=== PATIENT | male | born 1955 | race Caucasian/White ===

== ENCOUNTER 2021-02-21 09:07 | Outpatient (CLI) | payer MEDICARE, SELFPAY ==
--- NOTE | 2021-02-21 09:16 | XR_ITS ---
WS: [id number] Exam: XR shoulder LT min 2V* [id number] Date/Time of Exam: 02/21/2021 9:21 AM Reason For Exam: L SHOULDER PAIN/IMPINGEMENT SYNDROME L SHOULDER No fracture or dislocation. Soft tissue calcification along the greater tuberosity humerus suggesting calcific tendinitis or bursitis. XR/XR shoulder LT min 2V* [id number] IMPRESSION: 1. Findings suggest calcific tendinitis or bursitis. 2. No fracture or dislocation.
== END 2021-02-21 09:08 | disposition home or self-care (01) ==
PROVIDERS: PCP Nurse Practitioner Family; Visit Provider Nurse Practitioner Family
DX: M75.42 Impingement syndrome of left shoulder (principal); M25.512 Pain in left shoulder
CPT/HCPCS: 73030

== ENCOUNTER 2021-03-07 22:52 | Emergency (ER) | payer MEDICARE, SELFPAY ==
[2021-03-07 23:12] VITALS: BP 117/76; PULSE 81; RESP 18; TEMP 36.9; O2SAT 95; BMI 25.8
--- NOTE | 2021-03-07 23:13 | CTR_ITS ---
PROCEDURE INFORMATION: Exam: CT Abdomen And Pelvis With Contrast Exam date and time: 03/07/2021 11:13 PM Age: 65 years old Clinical indication: Abdominal pain; Generalized; Additional info: Abd pain, diarrhea TECHNIQUE: Imaging protocol: Computed tomography of the abdomen and pelvis with contrast. Radiation optimization: All CT scans at this facility use at least one of these dose optimization techniques: automated exposure control; mA and/or kV adjustment per patient size (includes targeted exams where dose is matched to clinical indication); or iterative reconstruction. Contrast material: OMNI 300; Contrast volume: 95 ml; Contrast route: INTRAVENOUS (IV); COMPARISON: No relevant prior studies available. RADIATION DOSE METRICS: Total DLP (mGy-cm): 1564.3 FINDINGS: Liver: Normal. No mass. Gallbladder and bile ducts: Cholelithiasis. Negative for inflammatory gallbladder wall thickening. Negative for biliary system dilation. Pancreas: Normal. No ductal dilation. Spleen: Normal. No splenomegaly. Adrenal glands: Normal right adrenal gland. Small enhancing nodule of the left adrenal gland measures 12 mm x 12 mm. Kidneys and ureters: Small bilateral nonobstructing kidney stones. Negative for hydroureteronephrosis. No perinephric inflammation. Stomach and bowel: Unremarkable. No obstruction. No mucosal thickening. Appendix: Normal appendix. Intraperitoneal space: Unremarkable. No free air. No significant fluid collection. Vasculature: Unremarkable. No abdominal aortic aneurysm. Lymph nodes: Unremarkable. No enlarged lymph nodes. Urinary bladder: Unremarkable as visualized. Reproductive: Mild severity prostatomegaly. Bones/joints: Unremarkable. No acute fracture. Soft tissues: Unremarkable. CT/CT abdomen pelvis w con* [id number] IMPRESSION: 1. Negative for acute abdominopelvic pathology. 2. Incidental small left adrenal gland mass. 3. Consider 12 month follow-up adrenal CT. (Reference: Mario) REFERENCES: Mario MARTINEZ, et al. Management of Incidental Adrenal Masses: A White Paper of the ACR Incidental Findings Committee. J Am Malena Radiol. 2017;14(8):7865-3429. Radiation Dose CTDIVOL = (mGy): DLP = 1564.3 (mGy-cm)
--- NOTE | 2021-03-07 23:19 | ED_ITS ---
HPI - Nausea/Vomiting/Diarrhea General: Chief complaint: Nausea/Vomiting/Diarrhea Stated complaint: Diarrhea, abd pain Time Seen by Provider: 03/07/21 23:19 History of Present Illness: HPI Narrative: 65-year-old male patient comes in today with complaints of abdominal pain and diarrhea. Patient has a history of diabetes which he controls with diet and medication. Patient states that for 1 week now he started having diarrhea. The diarrhea did not start until after Thanksgiving meal. Patient appears well. Patient appears no acute distress. Patient reports frequent significant diarrhea with -- stools today. Patient denies any vomiting. Patient denies any abdominal surgeries. Review of Systems General: Reports: 10 or more systems reviewed and unremarkable except in HPI and below GI: Reports: abdominal pain and diarrhea Physical Exam Const: COMMON NORMALS: no acute distress and patient oriented x3 GENERAL APPEARANCE: cooperative HENMT: COMMON NORMALS: normocephalic and Normal external nose present HEAD & SCALP: normal to inspection and normocephalic NOSE: Normal external nose present MOUTH: Normal oral and palatal mucosa present Eye: GENERAL EYE: appearance normal, both eyes and all related structures Neck/C-Spine: COMMON NORMALS: full ROM Chest: COMMONS NORMALS: normal inspection of the chest Resp: COMMON NORMALS: normal respiratory effort EFFORT & INSPECTION: Yes able to speak in complete sentences Cardio: COMMON NORMALS: regular rate and regular rhythm RATE: regular rate RHYTHM: regular rhythm GI: COMMON NORMALS: Soft to palpation and non-tender AUSCULTATION: Yes Hyperactive bowel sounds present PALPATION: Yes Soft to palpation, Yes Tenderness to palpation present (GI) (Periumbilical), No Guarding due to palpation present (GI), No Rigid due to palpation and No Rebound tenderness present : COMMON NORMALS: Yes no CVA tenderness BLADDER/KIDNEY EXAM: Yes no CVA tenderness Back/Pelvis: COMMON NORMALS: no CVA tenderness and thoracic and lumbar spine normal to inspection Extremity: COMMON NORMALS: normal to inspection Neuro: COMMON NORMALS: patient oriented x3 and moves all extremities Psych: COMMON NORMALS: mental status grossly normal and cooperative Skin: COMMON NORMALS: no rashes or lesions noted GENERAL SKIN EXAM: no rashes or lesions noted Course Vital Signs: Vital signs: Vital Signs Temperature 98.5 F 03/07/21 23:12 Pulse Rate 88 03/08/21 00:51 Respiratory Rate 18 03/08/21 00:51 Blood Pressure 112/59 03/08/21 00:51 Pulse Oximetry 95 03/08/21 00:51 MDM - Nausea/Vomiting/Diarrhea MDM Narrative: Medical decision making narrative: 65-year-old male patient comes in with persistent diarrhea since . Patient reports some lower abdominal pain. Patient denies any fever or chills. Patient appears mildly unwell. Oral mucosa is mildly dry. Patient is diabetic. Differential diagnosis includes diverticulitis, gastroenteritis, colitis. CBC showed a white count of 15,000, glucose was 190, sodium was 132. Urinalysis was unremarkable. Stools were collected and sent for evaluation. CT of the abdomen and pelvis noted no significant abnormality. Patient did have an enlarged prostate and an enlarged adrenal gland that was recommended to have repeat imaging in 6 months. I notified the family of this. Also recommend the patient increase bulk in his diet with extra fiber such with Metamucil. Patient will be covered with Cipro and Flagyl to cover for infectious gastroenteritis. Patient reported understanding of care plan. Patient also reports that he has been having some difficulty sleeping and asked if we could give him something to help him rest. I recommended patient talk with his primary care regarding his issues. Patient was written for 7 tablets of Ambien 5 mg. Lab Data: Labs: Lab Results 03/07/21 03/07/21 03/08/21 23:27 23:27 00:10 WBC 15.0 10^3/uL H 10 ^3/uL (4.0-10.0) RBC 5.94 10^6/uL H 10 ^6/uL (4.1-5.3) Hgb 17.6 g/dL H g/dL (11.7-16.6) Hct 49.6 % % (42.0-52.0) MCV 83.5 fl fl (80-94) MCH 29.6 pg pg (28.0-34.0) MCHC 35.5 g/dL g/dL (30.0-36.0) RDW 12.9 % % (12.1-15.1) Plt Count 268 10^3/cmm 10^3 /cmm (130-400) MPV 11.1 fL H fL (7.4-10.4) Neut % (Auto) 56.7 % % Lymph % (Auto) 15.5 % % Loving % (Auto) 6.1 % % Eos % (Auto) 19.6 % % Baso % (Auto) 0.3 % % Neut # (Auto) 8.50 10^3/uL H 10 ^3/uL (1.8-7.7) Lymph # (Auto) 2.3 10^3/uL 10^3/ uL (0.8-4.8) Loving # (Auto) 0.9 10^3/uL 10^3/ uL (0.2-0.9) Eos # (Auto) 2.9 10^3/uL H 10^ 3/uL (0.0-0.8) Baso # (Auto) 0.1 10^3/uL 10^3/ uL (0.0-0.1) Nucleated RBC % (a uto) 0 % % Nucleated RBCs # 0.0 /100WBC /100W BC Sodium 132 mmol/L L mmol /L (136-145) Potassium 3.7 mmol/L mmol/L (3.5-5.1) Chloride 99 mmol/L mmol/L (98-107) Carbon Dioxide 20 mmol/L L mmol/ L (22-29) Anion Gap 16.7 (5-19) BUN 21 mg/dL mg/dL (8-23) Creatinine 0.9 mg/dL mg/dL (0.7-1.2) GFR Calculation 84.7 mL/min L mL/ min (90-130) Glucose 190 mg/dL H mg/dL (65-115) Calculated Osmolal ity 282 mOsm/kg L mOs m/kg (285-295) Calcium 7.0 mg/dL L mg/dL (8.5-10.5) Total Bilirubin 0.3 mg/dL mg/dL (0.15-1.2) AST 10 U/L U/L (0-40) ALT 11 U/L U/L (0-41) Alkaline Phosphata se 105 IU/L IU/L (40-130) Total Protein 7.0 g/dL g/dL (6.6-8.7) Albumin 4.1 g/dL g/dL (3.5-5.2) Globulin 2.9 g/dL g/dL (1.3-4.6) Lipase 39 U/L U/L (13-60) Urine Color Yellow (Yellow) Urine Appearance Clear (CLEAR) Urine pH 5 (5-7) Ur Specific Gravit y 1.015 (1.005-1.030) Urine Protein Neg (Negative) Urine Glucose (UA) 4+ H (Normal) Urine Ketones Negative (Negative) Urine Blood Neg (Negative) Urine Nitrate Negative (Negative) Urine Bilirubin Neg (Negative) Urine Urobilinogen Neg mg/dL mg/dL (Negative) Ur Leukocyte Dianne ase Negative (Negative) Discharge Plan Discharge Patient Disposition: Home Clinical Impression: Gastroenteritis Diarrhea Qualifiers: Diarrhea type: presumed infectious Qualified Code(s): R19.7 - Diarrhea, unspecified Condition: Stable Prescriptions: New Cipro 500 mg tablet 500 mg PO BID Qty: 10 RF: 0 metronidazole 500 mg tablet 500 mg PO BID Qty: 10 RF: 0 loperamide 2 mg capsule 2 mg PO Q4H PRN (Reason: loose stool) Qty: 20 RF: 0 zolpidem 5 mg tablet 5 mg PO .HS PRN (Reason: insomnia) Qty: 7 RF: 0 Discharge Orders: Discharge ED (Routine); Ordered 03/08/21 Ordered By: Sandip Dumont Referrals: Christine Philip NP [Primary Care Provider] - Discharge Diet: Usual diet Discharge Activity: Increase activity as tolerated Patient Instructions: Diarrhea - Adult, Opioid Safety Activity Restrictions/Additional Instructions: Drink plenty of fluids. Take antibiotic as directed. Use loperamide as needed for diarrhea. Follow-up with primary care in 3 days for recheck. Return to the ER for high fever, blood in vomit or stools, or new concerns. Coding Level of Care Code ED Transport [employer]cre[employer] for Harry Fwd Exam Comprehensive
[2021-03-07 23:43] LABS: Basophils # 0.1 10^3/uL (0.0-0.1); Basophils % 0.3 %; Eosinophils # 2.9 10^3/uL (0.0-0.8); Eosinophils % 19.6 %; Hematocrit 49.6 % (42.0-52.0); Hemoglobin 17.6 g/dL (11.7-16.6); Lymphocytes # 2.3 10^3/uL (0.8-4.8); Lymphocytes % 15.5 %; Mean Corpuscular HGB Conc 35.5 g/dL (30.0-36.0); Mean Corpuscular Hemoglobin 29.6 pg (28.0-34.0); Mean Corpuscular Volume 83.5 fl (80-94); Mean Platelet Volume 11.1 fL (7.4-10.4); Monocytes # 0.9 10^3/uL (0.2-0.9); Monocytes % 6.1 %; Neutrophils % 56.7 %; Nucleated Red Blood Cells % 0 %; Platelet Count 268 10^3/cmm (130-400); Red Blood Count 5.94 10^6/uL (4.1-5.3); Red Cell Distribution Width 12.9 % (12.1-15.1)
[2021-03-08 00:07] LABS: Alanine Aminotransferase 11 U/L (0-41); Albumin Level 4.1 g/dL (3.5-5.2); Alkaline Phosphatase 105 IU/L (40-130); Anion Gap 16.7 (5-19); Aspartate Amino Transferase 10 U/L (0-40); Blood Urea Nitrogen 21 mg/dL (8-23); Carbon Dioxide 20 mmol/L (22-29); Chloride 99 mmol/L (98-107); Globulin 2.9 g/dL (1.3-4.6); Glomerular Filtration Rate 84.7 mL/min (90-130); Glucose 190 mg/dL (65-115); Lipase 39 U/L (13-60); Osmolality Calculated 282 mOsm/kg (285-295); Potassium 3.7 mmol/L (3.5-5.1); Sodium 132 mmol/L (136-145); Total Bilirubin 0.3 mg/dL (0.15-1.2)
[2021-03-08 00:24] LABS: Add Urine Microscopic? NO; Charge for UA Resulting for Rev
[2021-03-08] MEDS: iohexol 300 mg/mL 100 mL Btl IV (00:31)
[2021-03-08 00:34] LABS: Glucose Urine UA 4+ (Normal); Protein Urine Neg (Negative); Specific Gravity, Urine 1.015 (1.005-1.030); Urine Appearance Clear (CLEAR); Urine Color Yellow (Yellow); pH Urine 5 (5-7)
[2021-03-08 00:35] LABS: Bilirubin Urine Neg (Negative); Blood Urine Neg (Negative); Ketones Urine Negative (Negative); Leukocyte Esterase Urine Negative (Negative); Nitrate Urine Negative (Negative); Urobilinogen Urine Neg (Negative)
[2021-03-08 00:51] VITALS: BP 112/59; PULSE 88; RESP 18; O2SAT 95
[2021-03-08] MEDS: sodium chloride 0.9% 1,000 ML 999 ML IV ×2 (01:33→01:39)
[2021-03-08] MEDS: metroNIDAZOLE 500 MG Tablet PO (01:39)
[2021-03-08] MEDS: diphenoxylate/atropine Tablet 2 TAB PO (01:39)
[2021-03-08] MEDS: ciprofloxacin 500 mg Tablet PO (01:39)
[2021-03-08] MEDS: zolpidem 5 mg Tablet PO (02:13)
[2021-03-08 02:15] VITALS: BP 132/79; PULSE 77; RESP 18; O2SAT 100
== END 2021-03-08 02:17 | disposition home or self-care (01) ==
PROVIDERS: Emergency Provider Nurse Practitioner Family; PCP Nurse Practitioner Family
DX: K52.9 Noninfective gastroenteritis and colitis, unspecified (principal)
CPT/HCPCS: 74177; 80053; 81003; 82274; 83630; 83690; 85025; 87506; 96360; 96361; 99283; J7030; Q9967

== ENCOUNTER → 2022-09-05 08:01 | Outpatient (BNVA) | payer MEDICARE, MEDICAID, SELFPAY | PROVIDERS: PCP Nurse Practitioner Family; Referring Provider Nurse Practitioner Family; Visit Provider Nurse Practitioner Family | DX: C44.41 Basal cell carcinoma of skin of scalp and neck (principal); L28.0 Lichen simplex chronicus; L81.4 Other melanin hyperpigmentation; D22.5 Melanocytic nevi of trunk; Z71.89 Other specified counseling; L85.3 Xerosis cutis; L57.8 Other skin changes due to chronic exposure to nonionizing radiation | CPT/HCPCS: 11102; 17000; 17003; 99204 ==

== ENCOUNTER → 2022-09-10 14:14 | Outpatient (BNVA) | payer MEDICARE, MEDICAID, SELFPAY | PROVIDERS: PCP Family Medicine; Referring Provider Nurse Practitioner Family; Visit Provider Internal Medicine | DX: E11.9 Type 2 diabetes mellitus without complications (principal); E78.2 Mixed hyperlipidemia; Z79.84 Long term (current) use of oral hypoglycemic drugs; Z79.4 Long term (current) use of insulin | CPT/HCPCS: 99204 ==

== ENCOUNTER → 2022-09-30 09:54 | Outpatient (BNVA) | payer MEDICARE, MEDICAID, SELFPAY | PROVIDERS: PCP Family Medicine; Visit Provider Dermatology | DX: C44.41 Basal cell carcinoma of skin of scalp and neck (principal) | CPT/HCPCS: 14041; 17311; 17312 ==

== ENCOUNTER → 2022-12-12 07:49 | Outpatient (BNVA) | payer MEDICARE, MEDICAID, SELFPAY | PROVIDERS: PCP Family Medicine; Visit Provider Internal Medicine | DX: E11.9 Type 2 diabetes mellitus without complications (principal); E78.2 Mixed hyperlipidemia; Z79.4 Long term (current) use of insulin | CPT/HCPCS: 99214 ==

== ENCOUNTER → 2023-03-17 08:01 | Outpatient (BNVA) | payer MEDICARE, MEDICAID, SELFPAY | PROVIDERS: PCP Family Medicine; Visit Provider Internal Medicine | DX: E11.9 Type 2 diabetes mellitus without complications (principal); E78.2 Mixed hyperlipidemia; Z79.4 Long term (current) use of insulin | CPT/HCPCS: 99214 ==

== ENCOUNTER → 2023-06-27 09:49 | Outpatient (BNVA) | payer MEDICARE, MEDICAID, SELFPAY | PROVIDERS: PCP Family Medicine; Visit Provider Internal Medicine | DX: E11.9 Type 2 diabetes mellitus without complications (principal); E78.2 Mixed hyperlipidemia | CPT/HCPCS: 99214 ==

== ENCOUNTER → 2023-08-08 11:55 | Outpatient (BNVA) | payer MEDICARE, MEDICAID, SELFPAY | PROVIDERS: PCP Family Medicine; Visit Provider Internal Medicine | DX: E11.9 Type 2 diabetes mellitus without complications (principal); E78.2 Mixed hyperlipidemia; Z79.4 Long term (current) use of insulin | CPT/HCPCS: 99214 ==

== ENCOUNTER → 2023-11-11 08:14 | Outpatient (BNVA) | payer MEDICARE, MEDICAID, SELFPAY | PROVIDERS: PCP Family Medicine; Visit Provider Internal Medicine | DX: E11.9 Type 2 diabetes mellitus without complications (principal); E78.2 Mixed hyperlipidemia; Z79.4 Long term (current) use of insulin | CPT/HCPCS: 99214 ==

== ENCOUNTER 2024-02-01 09:47 | Emergency (ER) | payer MEDICARE, MEDICAID, SELFPAY ==
[2024-02-01 09:52] VITALS: BP 179/86; PULSE 62; RESP 18; TEMP 36.7; O2SAT 97; BMI 26.6
--- NOTE | 2024-02-01 09:59 | XRR_ITS ---
PROCEDURE INFORMATION: Exam: XR Left Hand Exam date and time: 02/01/2024 10:07 AM Age: 68 years old Clinical indication: Pain; Hand; Left; Additional info: Injury TECHNIQUE: Imaging protocol: Radiologic exam of the left hand. Views: 3 or more views. COMPARISON: No relevant prior studies available. FINDINGS: Bones/joints: No fracture or dislocation is appreciated. Bony mineralization is normal. There is mild osteoarthritis involving the 1st carpometacarpal joint and IP joints. Soft tissues: There is soft tissue swelling with soft tissue injury involving the 2nd digit. XR/XR hand LT min 3V* [id number] IMPRESSION: 1. Soft tissue swelling with soft tissue injury involving the 2nd digit.
--- NOTE | 2024-02-01 10:22 | ED_ITS ---
HPI - Wound/Laceration General: Chief Complaint: Wound/Laceration Stated Complaint: Left finger laceration Time Seen by Provider: 02/01/24 09:52 Source: patient Mode of arrival: ambulatory Limitations: no limitations History of Present Illness: 68-year-old male who states that he is w orking on bulldozer and had a limb come back and hit him in the left hand he does have a laceration over the radial a spect of his left index finger he rates his pain a 6 at 10 he has full range of motion denies any other injuries. Associated symptoms: Denies chills, fever(s), nausea or vomiting Related Data Home Medications Medication Instructions Recorded Confirmed gabapentin 100 mg capsule 100 mg PO DAILY 09/10/22 11/11/23 omeprazole 40 mg capsule,delayed 40 mg PO BID 09/10/22 11/11/23 release ropinirole 2 mg tablet 2 mg PO DAILY 09/10/22 11/11/23 sertraline 100 mg tablet 100 mg PO DAILY 09/10/22 11/11/23 tamsulosin 0.4 mg capsule 0.4 mg PO DAILY 09/10/22 11/11/23 trazodone 150 mg tablet 150 mg PO DAILY 09/10/22 11/11/23 Previous Rx's Medication Instructions Recorded ciprofloxacin HCl 500 mg tablet 500 mg PO BID #10 tabs 03/08/21 (Cipro) loperamide 2 mg capsule 2 mg PO Q4H PRN loose stool #20 03/08/21 caps metronidazole 500 mg tablet 500 mg PO BID #10 tabs 03/08/21 zolpidem 5 mg tablet 5 mg PO .HS PRN insomnia #7 tabs 03/08/21 atorvastatin 40 mg tablet 40 mg PO DAILY #90 tabs 03/17/23 blood-glucose meter,continuous #1 ea 03/17/23 (Dexcom G7 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 Cat Operator) pen needle, diabetic 31 gauge x #100 ea 07/01/23/ (Comfort EZ Pen [place]) blood-glucose sensor (Dexcom G7 #9 ea 09/08/23 Sensor device) amoxicillin 500 mg-potassium 1 tab PO TID #21 tabs 11/11/23 clavulanate 125 mg tablet insulin regular hum U-500 conc 500 60 unit (0.12 mL) SUBCUT TID #32.4 01/15/24 unit/mL(3 mL) subcut pen (Humulin mL R U-500 (Conc) Insulin Kwikpen) cephalexin 500 mg capsule 500 mg PO TID 7 days #21 caps 02/01/24 Allergies Allergy/AdvReac Type Severity Reaction Status Date / Time No Known Allergies Allergy Verified 11/11/23 08:20 Review of Systems Const: Denies: fever(s), chills, body aches or change in appetite ENMT: Denies: throat pain or dental pain Card: Denies: chest pain Resp: Denies: dyspnea GI: Denies: abdominal pain, nausea, vomiting or diarrhea Musc: Reports: extremity pain; Denies: neck pain or back pain Skin/Breast: Denies: rash Neuro: Denies: headache(s) PFSH ED PFSH: Medical History Diabetes mellitus Family History Other Cancer Diabetes Hypertension Social History Smoking and tobacco/nicotine status: never used tobacco/nicotine Physical Exam Const: COMMON NORMALS: no acute distress, patient oriented x3 and healthy appearing HENMT: COMMON NORMALS: normocephalic and atraumatic HEAD & SCALP: normoce phalic and atraumatic Neck/C-Spine: COMMON NORMALS: full ROM and supple Chest: COMMONS NORMALS: normal inspection of the chest Resp: COMMON NORMALS: normal respiratory effort Cardio: COMMON NORMALS: regular rate, regular rhythm and No murmurs present (Cardio) RATE: regular rate RHYTHM: regular rhythm Extremity: COMMON NORMALS: full ROM NARRATIVE EXTREMITY EXAM: 3 cm laceration to the radial aspect of right index finger no tendon involvement bleeding controlled he has full extension and flexion Neuro: COMMON NORMALS: patient oriented x3, moves all extremities and no focal motor deficits Psych: COMMON NORMALS: mental status grossly normal, Normal thought process present and cooperative THOUGHT PROCESS: Normal thought process present Skin: COMMON NORMALS: no rashes or lesions noted and no wounds GENERAL SKIN EXAM: no rashes or lesions noted Procedures Laceration Laceration 1: Site: hand Side (If applicable): left Size (cm): 4 Description: linear Depth: simple, single layer Local Anesthetic: bupivacaine 0.5% Amount of anesthesia used (mL): 10 Pre-repair: wound explored, irrigated extensively and deep structures intact Skin layer closed with: nylon Size (cm): 5-0 Number of sutures: 6 Technique: simple, interrupted Course Vital Signs: Vital signs: Vital Signs Temperature 98.1 F 02/01/24 09:52 Pulse Rate 62 02/01/24 09:52 Respiratory Rate 18 02/01/24 09:52 Blood Pressure 179/86 02/01/24 09:52 Pulse Oximetry 97 02/01/24 09:52 MDM - Wound/Laceration Medical Decision Making Patient presents here with laceration to index finger no tendon involvement. X- ray here shows no fracture did repair the laceration we will place him on antibiotics he is to have sutures out in 10 days. He understands agrees plan Medical Records I reviewed the patient's medical records. Lab Data Radiology Impressions Hand X-Ray 02/01/24 09:59 IMPRESSION: 1. Soft tissue swelling with soft tissue injury involving the 2nd digit. All radiology interpretation(s) finalized by discharge Discharge Plan Discharge Patient Disposition: Home Clinical Impression: Finger laceration Condition: Stable Prescriptions: New cephalexin 500 mg capsule 500 mg PO TID 7 Days Qty: 21 0RF No Action amoxicillin-pot clavulanate 500-125 mg tablet 1 tab PO TID Qty: 21 0RF sertraline 100 mg tablet 100 mg PO DAILY gabapentin 100 mg capsule 100 mg PO DAILY trazodone 150 mg tablet 150 mg PO DAILY tamsulosin 0.4 mg capsule 0.4 mg PO DAILY ropinirole 2 mg tablet 2 mg PO DAILY omeprazole 40 mg capsule,delayed release(DR/EC) 40 mg PO BID atorvastatin 40 mg tablet 40 mg PO DAILY Qty: 90 0RF (DME) Dexcom G7 Boom Cat Operator Misc See Rx Instructions .Route Qty: 1 0RF Rx Instructions: As directed (DME) pen needle, diabetic [Comfort EZ Pen [place]] 31 gauge x 5/16 needle See Rx Instructions .Route Qty: 100 3RF Rx Instructions: As directed (DME) Dexcom G7 Sensor Device See Rx Instructions .ROUTE .COMPLEX Qty: 9 3RF Dose Instruction: CHANGE EVERY 10 DAYS Rx Instructions: CHANGE EVERY 10 DAYS Humulin R U-500 (Conc) Kwikpen 500 unit/mL (3 mL) insulin pen 60 unit SUBCUT TID Qty: 32.4 1RF Cipro 500 mg tablet 500 mg PO BID Qty: 10 0RF metronidazole 500 mg tablet 500 mg PO BID Qty: 10 0RF loperamide 2 mg capsule 2 mg PO Q4H PRN (Reason: loose stool) Qty: 20 0RF Rx Instructions: administer after each loose stool until symptoms controlled; do not exceed 16 mg per 24 hrs zolpidem 5 mg tablet 5 mg PO .HS PRN (Reason: insomnia) Qty: 7 0RF Discharge Orders: Discharge ED (Routine); Ordered 02/01/24 Ordered By: Fatemeh Yee Referrals: Kathi Moody MD [Primary Care Provider] - 7-10 days Discharge Diet: Advance as tolerated Discharge Activity: Resume usual activity Patient Instructions: Care For Your Stitches (ED), Laceration (ED) Activity Restrictions/Additional Instructions: suture removal in 10 days Coding Level of Care Code 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
[2024-02-01] MEDS: BUPivacaine-epi 0.5% 10 ML INJ 30 ML INJECTION (10:47)
[2024-02-01 11:21] VITALS: BP 147/82; PULSE 63; O2SAT 98
== END 2024-02-01 11:22 | disposition home or self-care (01) ==
PROVIDERS: Emergency Provider Emergency Medicine; PCP Family Medicine
DX: S61.211A Laceration without foreign body of left index finger without damage to nail, initial encounter (principal); W22.8XXA Striking against or struck by other objects, initial encounter
CPT/HCPCS: 12002; 73130; 99283

== ENCOUNTER → 2024-03-12 08:54 | Outpatient (BNVA) | payer MEDICARE, MEDICAID, SELFPAY | PROVIDERS: PCP Family Medicine; Visit Provider Internal Medicine | DX: E11.9 Type 2 diabetes mellitus without complications (principal); E78.2 Mixed hyperlipidemia; Z79.4 Long term (current) use of insulin | CPT/HCPCS: 99214 ==

== ENCOUNTER → 2024-06-17 08:05 | Outpatient (BNVA) | payer MEDICARE, MEDICAID, SELFPAY | PROVIDERS: PCP Family Medicine; Visit Provider Internal Medicine | DX: E11.9 Type 2 diabetes mellitus without complications (principal); E78.2 Mixed hyperlipidemia | CPT/HCPCS: 99214 ==

== ENCOUNTER 2024-08-20 19:58 | Emergency (ER) | payer OTHER, MEDICAID, SELFPAY ==
[2024-08-20 20:10] VITALS: BP 156/81; PULSE 82; RESP 20; TEMP 36.3; O2SAT 95
--- NOTE | 2024-08-20 20:18 | XRR_ITS ---
PROCEDURE INFORMATION: Exam: XR Chest Exam date and time: 08/20/2024 9:02 PM Age: 68 years old Clinical indication: Cough and shortness of breath; Cough with SOB TECHNIQUE: Imaging protocol: Radiologic exam of the chest. Views: 1 view. COMPARISON: CT abdomen pelvis w con* [id number] 03/08/2021 12:25 AM FINDINGS: Lungs: Unremarkable. No consolidation. Pleural spaces: Unremarkable. No pleural effusion. No pneumothorax. Heart/Mediastinum: Unremarkable. No cardiomegaly. Bones/joints: Unremarkable. XR/XR chest 1V portable [id number] IMPRESSION: No acute findings.
[2024-08-20 20:51] LABS: Basophils # 0.1 10^3/uL (0.0-0.1); Basophils % 0.5 %; Eosinophils # 0.1 10^3/uL (0.0-0.8); Eosinophils % 1.1 %; Hematocrit 46.8 % (37-53); Lymphocytes # 1.5 10^3/uL (0.8-4.8); Lymphocytes % 13.9 %; Mean Corpuscular HGB Conc 34.6 g/dL (30-55); Mean Corpuscular Hemoglobin 29.1 pg (27-33); Mean Corpuscular Volume 84.2 fl (82-101); Mean Platelet Volume 10.4 fL (7.4-10.4); Monocytes # 0.7 10^3/uL (0.2-0.9); Monocytes % 6.4 %; Neutrophils # 8.13 10^3/uL (1.8-7.7); Neutrophils % 77.7 %; Nucleated Red Blood Cells % 0 %; Platelet Count 228 10^3/cmm (157-399); Red Blood Count 5.56 10^6/uL (3.85-5.65); White Blood Count 10.45 10^3/uL (3.29-11.43)
[2024-08-20 21:10] LABS: Anion Gap 16.6 (5-19); Blood Urea Nitrogen 19 mg/dL (8-23); Calcium 9.3 mg/dL (8.5-10.5); Carbon Dioxide 25 mmol/L (22-29); Chloride 97 mmol/L (98-107); Creatinine Clr Calc Pharmacy 85.3147; Glomerular Filtration Rate 83.9 mL/min (90-130); Glucose 75 mg/dL (65-115); Osmolality Calculated 281 mOsm/kg (285-295); Potassium 3.6 mmol/L (3.5-5.1); Sodium 135 mmol/L (136-145)
[2024-08-20 21:25] LABS: Influenza A NEGATIVE (Negative); Influenza B NEGATIVE (Negative); Respiratory Syncytial Virus Ce NEGATIVE (Negative); SARS-CoV-2 PCR NEGATIVE (Negative)
== END 2024-08-20 23:21 | disposition left against medical advice (07) ==
PROVIDERS: Emergency Medicine; Emergency Provider Family Medicine; PCP Family Medicine
DX: R05.9 Cough, unspecified (principal); R06.02 Shortness of breath; Z53.21 Procedure and treatment not carried out due to patient leaving prior to being seen by health care provider; Z11.52 Encounter for screening for COVID-19
CPT/HCPCS: 36415; 71045; 80048; 85025; 87637; 99284

== ENCOUNTER → 2024-12-29 08:31 | Outpatient (BNVA) | payer OTHER, MEDICAID, SELFPAY | PROVIDERS: PCP Family Medicine; Visit Provider Internal Medicine | DX: E11.9 Type 2 diabetes mellitus without complications (principal); E78.2 Mixed hyperlipidemia | CPT/HCPCS: 99214 ==